=== PATIENT | male | born 2000 | race Caucasian/White ===

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

== ENCOUNTER 2019-07-28 23:07 | Emergency (ER) | payer SELFPAY ==
[2019-07-28] MEDS ORDERED: Acetaminophen 500 MG Tab PO ONE (23:35)
--- NOTE | 2019-07-28 23:47 | EDM.PDOC ---
ED HPI GENERAL MEDICAL PROBLEM - General Chief Complaint: Skin Complaint Stated Complaint: left ankle injury Time Seen by Provider: 07/28/19 23:17 Source of Information: Reports: Patient History Limitations: Reports: No Limitations - History of Present Illness INITIAL COMMENTS - FREE TEXT/NARRATIVE: This patient is a 19-year-old male with no pertinent past medical history presenting with pain and swelling to the left lower extremity. He reports noticing a blister over the left Achilles tendon 2 days ago. Over the past 24 hours, he has noted worsening swelling and pain over the same area. He is concerned that he may have an infection. He denies any fever, chills, nausea or vomiting. No history of IV drug use. No self treatment prior to arrival, no other complaints. L foot Pain Score (Numeric/FACES): 10 - Related Data Allergies Allergy/AdvReac Type Severity Reaction Status Date / Time venom-honey bee Allergy Swelling Verified 07/28/19 23:21 [bee venom (honey bee)] Home Meds: Home Meds cephALEXin [Keflex] 500 mg PO QID 7 Days #28 capsule 07/28/19 [Rx] Past Medical History - Past Health History Medical/Surgical History: Denies Medical/Surgical History HEENT History: Reports: None, Other (See Below) Other HEENT History: wears glasses Cardiovascular History: Reports: None Respiratory History: Reports: None Gastrointestinal History: Reports: None Genitourinary History: Reports: None Musculoskeletal History: Reports: None Neurological History: Reports: None Psychiatric History: Reports: None Endocrine/Metabolic History: Reports: None Hematologic History: Reports: None Immunologic History: Reports: None Oncologic (Cancer) History: Reports: None Dermatologic History: Reports: None - Infectious Disease History Infectious Disease History: Reports: None - Past Surgical History Head Surgeries/Procedures: Reports: None Cardiovascular Surgical History: Reports: None Respiratory Surgical History: Reports: None GI Surgical History: Reports: None Male Surgical History: Reports: None Endocrine Surgical History: Reports: None Neurological Surgical History: Reports: None Musculoskeletal Surgical History: Reports: None Oncologic Surgical History: Reports: None Dermatological Surgical History: Reports: None Social & Family History - Family History Family Medical History: Noncontributory - Tobacco Use Smoking Status *Q: Never Smoker - Caffeine Use Caffeine Use: Reports: None - Recreational Drug Use Recreational Drug Use: No ED ROS GENERAL - Review of Systems Review Of Systems: See Below Constitutional: Denies: Fever, Chills Respiratory: Denies: Shortness of Breath Cardiovascular: Denies: Chest Pain GI/Abdominal: Denies: Nausea, Vomiting Musculoskeletal: Reports: Leg Pain Skin: Reports: Wound ED EXAM, SKIN/RASH Exam: See Below Text/Narrative:: Vital signs reviewed. Nursing notes reviewed. Constitutional: Awake, alert, non-distressed. Head: Normocephalic, atraumatic. Pulmonary: normal work of breathing, no accessory muscle use. Abdomen/GI: nondistended Musculoskeletal: No deformities. Integumentary: Appropriate color for ethnicity, warm, dry, no pallor or jaundice , no rash. Small blister to the left Achilles tendon with associated erythema and tenderness. No obvious fluctuance or induration. Neurologic: Alert, answering questions appropriately, normal speech, no facial droop, moving all extremities well. Psychiatric: Appropriate mood and affect, normal thought process. ED SKIN PROCEDURES - Additional/Other Procedure(s) Other (Free Text) Procedure(s): Study: limited [id number] soft tissue ultrasound Recreational Programs Director: Ang Avendano DO Indication: pain, swelling to left lower extremity Windows: longitudinal, transverse Findings: soft tissue cobblestoning Impression: Findings consistent with cellulitis Course - Vital Signs Text/Narrative:: 19-year-old male presenting with left lower extremity pain and swelling. Patient mildly tachycardic on arrival but [hemodynamically stable, afebrile], well-appearing, looks nontoxic. Differential diagnosis includes but is not limited to: Abscess versus cellulitis Mildly tachycardic (HR 98-103 bpm), but no systemic signs of illness. Point-of- care ultrasound did not demonstrate a drainable abscess, appearance more consistent with cellulitis. Stable to discharge home. One-week course of Keflex. [id number] Tylenol Motrin as needed. Plan: Patient is stable to discharge home with outpatient primary care follow- up. Strict emergency department return precautions were provided, patient indicated understanding. All questions were answered prior to departure. Discharged in good condition. Last Recorded V/S: Last Vital Signs Temp 36.5 C 07/28/19 23:17 Pulse 103 H 07/28/19 23:17 Resp 16 07/28/19 23:17 BP 141/88 H 07/28/19 23:17 Pulse Ox 96 07/28/19 23:17 - Orders/Labs/Meds Meds: Medications Discontinued Medications Generic Name Dose Route Start Last Admin Trade Name Bell PRN Reason Stop Dose Admin Acetaminophen 1,000 mg 07/28/19 23:35 07/28/19 23:42 Tylenol Extra Strength PO 07/28/19 23:36 1,000 mg ONETIME ONE Administration Departure - Departure Time of Disposition: 23:52 Disposition: Home, Self-Care 01 Condition: Good Clinical Impression: Cellulitis Qualifiers: Site of cellulitis: extremity Site of cellulitis of extremity: lower extremity Laterality: left Qualified Code(s): L03.116 - Cellulitis of left lower limb - Discharge Information *PRESCRIPTION DRUG MONITORING PROGRAM REVIEWED*: Not Applicable *COPY OF PRESCRIPTION DRUG MONITORING REPORT IN PATIENT DENIS: Not Applicable Prescriptions: cephALEXin [Keflex] 500 mg PO QID 7 Days #28 capsule Instructions: Cellulitis, Adult Referrals: Maxim Groves MD [Primary Care Provider] - 1 Week (As needed for follow-up of infection) Forms: ED Department Discharge Additional Instructions: Thank you for choosing the [facility] emergency department in [place] for your medical needs today. It was a pleasure caring for you. You were seen in the emergency department for a skin infection. You have been prescribed antibiotics, take the whole bottle even if you are feeling better. I recommend [id number] Tylenol and Motrin for pain. You can follow-up with your primary doctor the next few days if you do not think the wound is improving adequately. Please return the emergency department immediately if your symptoms worsen or if you feel worse. The following information is given to patients seen in the emergency department who are being discharged. This information is to outline your options for follow -up care. We provide all patients seen in our emergency department with a follow -up referral. The need for follow-up, as well as the timing and circumstances, are variable depending upon the specifics of your emergency department visit. If you don't have a primary care physician on staff, we will provide you with a referral. We always advise you to contact your personal physician following an emergency department visit to inform them of the circumstance of the visit and for follow-up with them and/or the need for any referrals to a consulting specialist. The emergency department will also refer you to a specialist when appropriate. This referral assures that you have the opportunity for follow-up care with a specialist. All of these measure are taken in an effort to provide you with optimal care, which includes your follow-up. Under all circumstances we always encourage you to contact your private physician who remains a resource for coordinating your care. When calling for follow-up care, please make the office aware that this follow-up is from your recent emergency room visit. If for any reason you are refused follow-up, please contact the [facility] Emergency Department at and asked to speak to the emergency department charge nurse. If you do not have a primary care physician that is caring for you, you can contact these clinics below to set up an appointment to establish care: [facility] [address] [place] [id number] [facility] [address] [place] [id number] Sepsis Event Note - Evaluation Sepsis Screening Result: No Definite Risk - Focused Exam Vital Signs: Vital Signs Temp Pulse Resp BP Pulse Ox 07/28/19 23:17 36.5 C 103 H 16 141/88 H 96 Date Exam was Performed: 07/28/19 Time Exam was Performed: 23:53
[2019-07-29 00:37] VITALS: BP 121/74; PULSE 97
== END 2019-07-29 | disposition home or self-care (01) ==
LOC: MW.ED 23:07
DX: L03.116 Cellulitis of left lower limb (principal); Z91.030 Bee allergy status
CPT/HCPCS: 99283; A9270; 99282

== ENCOUNTER 2019-10-02 23:37 | Emergency (ER) | payer SELFPAY ==
[2019-10-03 00:01] VITALS: BP 123/81; PULSE 99
--- NOTE | 2019-10-03 00:03 | EDM.PDOC ---
ED HPI GENERAL MEDICAL PROBLEM - General Chief Complaint: Laceration Stated Complaint: LACERATION LT POINTER FINGER Time Seen by Provider: 10/02/19 23:37 Source of Information: Reports: Patient History Limitations: Reports: No Limitations - History of Present Illness INITIAL COMMENTS - FREE TEXT/NARRATIVE: 19M UTD tetanus presents for lac to L index finger. Slipped with box knife cutting it L index finger Pain Score (Numeric/FACES): 8 - Related Data Allergies Allergy/AdvReac Type Severity Reaction Status Date / Time venom-honey bee Allergy Swelling Verified 07/28/19 23:21 [bee venom (honey bee)] Home Meds: Home Meds cephALEXin [Keflex] 500 mg PO QID 7 Days #28 capsule 07/28/19 [Rx] Past Medical History - Past Health History Medical/Surgical History: Denies Medical/Surgical History HEENT History: Reports: None, Other (See Below) Other HEENT History: wears glasses Cardiovascular History: Reports: None Respiratory History: Reports: None Gastrointestinal History: Reports: None Genitourinary History: Reports: None Musculoskeletal History: Reports: None Neurological History: Reports: None Psychiatric History: Reports: None Endocrine/Metabolic History: Reports: None Hematologic History: Reports: None Immunologic History: Reports: None Oncologic (Cancer) History: Reports: None Dermatologic History: Reports: None - Infectious Disease History Infectious Disease History: Reports: None - Past Surgical History Head Surgeries/Procedures: Reports: None Cardiovascular Surgical History: Reports: None Respiratory Surgical History: Reports: None GI Surgical History: Reports: None Male Surgical History: Reports: None Endocrine Surgical History: Reports: None Neurological Surgical History: Reports: None Musculoskeletal Surgical History: Reports: None Oncologic Surgical History: Reports: None Dermatological Surgical History: Reports: None Social & Family History - Family History Family Medical History: Noncontributory - Caffeine Use Caffeine Use: Reports: None ED ROS GENERAL - Review of Systems Review Of Systems: Comprehensive ROS is negative, except as noted in HPI. ED EXAM, SKIN/RASH Exam: See Below Exam Limited By: No Limitations General Appearance: Alert, WD/WN, No Apparent Distress Head: Atraumatic, Normocephalic Respiratory/Chest: No Respiratory Distress Cardiovascular: Normal Peripheral Pulses Extremities: Normal Inspection Neurological: Alert, Oriented Psychiatric: Normal Affect, Normal Mood Skin: Warm, Dry, Other (1-cm laceration to DIP L index finger without nailbed involvement ) Lymphatic: No Adenopathy ED SKIN PROCEDURES - Laceration/Wound Repair Left Digit - 2nd (Index) Appearance: Subcutaneous Distal NVT: Neuro & Vascular Intact Local Anesthesia - Lidocaine (Xylocaine): 1% Plain Local Anesthetic Volume: 5cc Skin Prep: Chlorhexidine (Hibiciens), Isopropyl Alcohol (Alcohol) Saline Irrigation (cc's): 100 Closed with: Sutures Lac/Wound length In cm: 1 Suture Size: 6-0 # of Sutures: 3 Suture Type: Prolene, Nylon, Interrupted, Simple Tetanus Status Addressed: Yes Complications: No Course - Vital Signs Last Recorded V/S: Last Vital Signs Temp 96.8 F L 10/02/19 23:58 Pulse 99 10/02/19 23:58 Resp 18 10/02/19 23:58 BP 123/81 10/02/19 23:58 Pulse Ox 99 10/02/19 23:58 - Orders/Labs/Meds Meds: Medications Discontinued Medications Generic Name Dose Route Start Last Admin Trade Name Bell PRN Reason Stop Dose Admin Cephalexin 500 mg 10/03/19 00:32 Keflex PO 10/03/19 00:33 ONETIME ONE Lidocaine HCl 10 ml 10/03/19 00:05 10/03/19 00:19 Xylocaine 1% INJECT 10/03/19 00:06 10 ml ONETIME ONE Administration Departure - Departure Time of Disposition: 00:51 Disposition: Home, Self-Care 01 Condition: Good Clinical Impression: Laceration of finger Qualifiers: Encounter type: initial encounter Finger: index finger Damage to nail status: without damage Foreign body presence: without foreign body Laterality: left Qualified Code(s): S61.211A - Laceration without foreign body of left index finger without damage to nail, initial encounter - Discharge Information *PRESCRIPTION DRUG MONITORING PROGRAM REVIEWED*: No *COPY OF PRESCRIPTION DRUG MONITORING REPORT IN PATIENT DENIS: No Instructions: Laceration Care, Adult Referrals: PCP,None [Primary Care Provider] - Forms: ED Department Discharge Additional Instructions: The following information is given to patients seen in the emergency department who are being discharged to home. This information is to outline your options for follow-up care. We provide all patients seen in our emergency department with a follow-up referral. The need for follow-up, as well as the timing and circumstances, are variable depending upon the specifics of your emergency department visit. If you don't have a primary care physician on staff, we will provide you with a referral. We always advise you to contact your personal physician following an emergency department visit to inform them of the circumstance of the visit and for follow-up with them and/or the need for any referrals to a consulting specialist. The emergency department will also refer you to a specialist when appropriate. This referral assures that you have the opportunity for follow-up care with a specialist. All of these measure are taken in an effort to provide you with optimal care, which includes your follow-up. Under all circumstances we always encourage you to contact your private physician who remains a resource for coordinating your care. When calling for follow-up care, please make the office aware that this follow-up is from your recent emergency room visit. If for any reason you are refused follow-up, please contact the [facility] Emergency Department at and asked to speak to the emergency department charge nurse. Sepsis Event Note (ED) - Evaluation Sepsis Screening Result: No Definite Risk - Focused Exam Vital Signs: Vital Signs Temp Pulse Resp BP Pulse Ox 10/02/19 23:58 96.8 F L 99 18 123/81 99
[2019-10-03] MEDS ORDERED: Lidocaine 1% 10 ML MDV INJECT ONE (00:05)
[2019-10-03] MEDS ORDERED: Cephalexin 500 MG Cap PO ONE (00:32)
--- NOTE | 2019-10-03 01:01 | CR ---
INDICATION: Laceration to end of index finger TECHNIQUE: Finger radiograph 3 views left 2nd COMPARISON: None FINDINGS: Bone: No acute fractures or aggressive bone lesions are identified. Joint: The metacarpophalangeal and interphalangeal joints are normal in appearance. Soft tissue: Unremarkable. No radiopaque foreign bodies are seen. IMPRESSION: 1. No acute osseous injuries or abnormalities are noted. Dictated by: Francisco Javier Remy MD @ 10/03/2019 01:00:06 (Electronically Signed)
== END 2019-10-03 01:15 | disposition home or self-care (01) ==
LOC: MW.ED 23:37
DX: S61.211A Laceration without foreign body of left index finger without damage to nail, initial encounter (principal); Z91.030 Bee allergy status; W26.0XXA Contact with knife, initial encounter
CPT/HCPCS: 12041; 73140; 99283; J2001

== ENCOUNTER 2020-10-22 01:48 | Emergency (ER) | payer SELFPAY ==
[2020-10-22] MEDS: Ondansetron 4 MG Tab.DIS PO ONE (02:10)
--- NOTE | 2020-10-22 02:17 | EDM.PDOC ---
ED HPI GENERAL MEDICAL PROBLEM - General Chief Complaint: Gastrointestinal Problem Stated Complaint: BLOOD DRAW, MEDICAL CLEARANCE Time Seen by Provider: 10/22/20 01:49 - History of Present Illness INITIAL COMMENTS - FREE TEXT/NARRATIVE: History of present illness: The patient is nauseated. He thinks is because he drank too much. It is happened to him before. It happens occasionally. He does not think he has a drinking problem. Review of systems: As per history of present illness and below otherwise all systems reviewed and negative. Past medical history: As per history of present illness and as reviewed below otherwise noncontributory. Surgical history: As per history of present illness and as reviewed below otherwise noncontributory. Social history: No reported history of drug or alcohol abuse. Family history: As per history of present illness and as reviewed below otherwise noncontributory. Physical exam: Constitutional - well developed, well-nourished and in no acute distress HEENT - normocephalic, no evidence of trauma - external nose and mouth normal - no mass in neck and no JVD - mucosae moist EYES - full EOM, PERRL, no icterus - no evidence of inflammation, injection, or drainage Respiratory - no respiratory distress, equal bilateral expansion, lungs clear to auscultation and no abnormal lung sounds Cardiovascular - Regular Rhythm with S1 and S2 appreciated and no murmur, gallop or rub. GI - abdomen soft without distension or organomegaly - normal bowel sounds - no guard or rebound Musculoskeletal no gross deformity of long bones or joints - no tenderness, swelling or edema Neurologic - Alert and oriented times four - CN II-XII grossly intact - motor sensory and coordination symmetrically normal Psychiatric - appropriate mood and affect with normal thought content Hematologic - No petechiae or purpura - mucosa appropriate color and sclera not pale - normal nail bed color and refill Integument - no rash or evidence of trauma - normal turgor Diagnostics: [] Therapeutics: [] Impression: [] Plan: [] Definitive disposition and diagnosis as appropriate pending reevaluation and review of above. - Related Data Allergies Allergy/AdvReac Type Severity Reaction Status Date / Time venom-honey bee Allergy Swelling Verified 10/22/20 02:03 [bee venom (honey bee)] Home Meds: Home Meds . [No Known Home Meds] 10/22/20 [History] Past Medical History - Past Health History Medical/Surgical History: Denies Medical/Surgical History HEENT History: Reports: None, Other (See Below) Other HEENT History: wears glasses Cardiovascular History: Reports: None Respiratory History: Reports: None Gastrointestinal History: Reports: None Genitourinary History: Reports: None Musculoskeletal History: Reports: None Neurological History: Reports: None Psychiatric History: Reports: None Endocrine/Metabolic History: Reports: None Hematologic History: Reports: None Immunologic History: Reports: None Oncologic (Cancer) History: Reports: None Dermatologic History: Reports: None - Infectious Disease History Infectious Disease History: Reports: None - Past Surgical History Head Surgeries/Procedures: Reports: None HEENT Surgical History: Reports: Adenoidectomy, Tonsillectomy Other HEENT Surgeries/Procedures: tooth extraction Cardiovascular Surgical History: Reports: None Respiratory Surgical History: Reports: None GI Surgical History: Reports: None Male Surgical History: Reports: None Endocrine Surgical History: Reports: None Neurological Surgical History: Reports: None Musculoskeletal Surgical History: Reports: None Other Musculoskeletal Surgeries/Procedures:: hand sx Oncologic Surgical History: Reports: None Dermatological Surgical History: Reports: None Social & Family History - Family History Family Medical History: No Pertinent Family History - Caffeine Use Caffeine Use: Reports: None - Recreational Drug Use Recreational Drug Use: No ED ROS GENERAL - Review of Systems Review Of Systems: Comprehensive ROS is negative, except as noted in HPI. ED EXAM, GENERAL - Physical Exam Exam: See Below Free Text/Narrative:: My physical exam is in the HPI Course - Vital Signs Last Recorded V/S: Last Vital Signs Temp 35.6 C L 10/22/20 01:59 Pulse 91 10/22/20 01:59 Resp 16 10/22/20 01:59 BP 130/83 10/22/20 01:59 Pulse Ox 96 10/22/20 01:59 - Orders/Labs/Meds Meds: Medications Discontinued Medications Generic Name Dose Route Start Last Admin Trade Name Bell PRN Reason Stop Dose Admin Ondansetron HCl 4 mg 10/22/20 02:07 10/22/20 02:10 Ondansetron 4 Mg Tab.Dis PO 10/22/20 02:08 4 mg ONETIME ONE Administration Departure - Departure Time of Disposition: 02:35 Disposition: DC/Tfer to Court of Law En 21 Condition: Good Clinical Impression: Gastritis - Discharge Information Instructions: Gastritis, Adult, [id number] Referrals: Maxim Groves MD [Primary Care Provider] - Forms: ED Department Discharge Additional Instructions: Take antacids as needed. If this is a recurring problem take [id number] medicine such as famotidine or omeprazole. [facility] [address] [place] [id number] [facility] [address] [place] [id number] The following information is given to patients seen in the emergency department who are being discharged to home. This information is to outline your options for follow-up care. We provide all patients seen in our emergency department with a follow-up referral. The need for follow-up, as well as the timing and circumstances, are variable depending upon the specifics of your emergency department visit. If you don't have a primary care physician on staff, we will provide you with a referral. We always advise you to contact your personal physician following an emergency department visit to inform them of the circumstance of the visit and for follow-up with them and/or the need for any referrals to a consulting specialist. The emergency department will also refer you to a specialist when appropriate. This referral assures that you have the opportunity for follow-up care with a specialist. All of these measure are taken in an effort to provide you with optimal care, which includes your follow-up. Under all circumstances we always encourage you to contact your private physician who remains a resource for coordinating your care. When calling for follow-up care, please make the office aware that this follow-up is from your recent emergency room visit. If for any reason you are refused follow-up, please contact the [facility] Emergency Department at and asked to speak to the emergency department charge nurse. Sepsis Event Note (ED) - Focused Exam Vital Signs: Vital Signs Temp Pulse Resp BP Pulse Ox 10/22/20 01:59 35.6 C L 91 16 130/83 96
[2020-10-22 02:39] VITALS: BP 129/73; PULSE 88
== END 2020-10-22 02:39 ==
LOC: MW.ED 01:48
DX: K29.70 Gastritis, unspecified, without bleeding (principal); Z91.030 Bee allergy status
CPT/HCPCS: 99283; A9270

== ENCOUNTER 2021-02-13 11:43 | Emergency (ER) | payer OTHER ==
--- NOTE | 2021-02-13 11:56 | EDM.PDOC ---
ED HPI GENERAL MEDICAL PROBLEM - General Chief Complaint: Trauma Stated Complaint: TRAUMA FROM TIRE RIM Time Seen by Provider: 02/13/21 11:45 Source of Information: Reports: Patient, EMS History Limitations: Reports: No Limitations - History of Present Illness INITIAL COMMENTS - FREE TEXT/NARRATIVE: 20-year-old male with no past medical history presents for blunt chest trauma. Patient was working on a tire when a rim popped off of the tire at roughly 50 pounds of pressure hitting into his chest. This caused him to be knocked back into fall on his buttocks. He felt the wind knocked out of him. He did not hit his head or lose consciousness. He is endorsing pain in his lower chest wall which is worse with breathing on. He did receive 1 mg of Dilaudid and 4 mg of Zofran by EMS which he states helped his pain from 10 out of 10 to 5 out of 10 in severity. He also notes pain in his middle and lower back. chest/abdomen Pain Score (Numeric/FACES): 5 - Related Data Allergies Allergy/AdvReac Type Severity Reaction Status Date / Time venom-honey bee Allergy Swelling Verified 02/13/21 11:51 [bee venom (honey bee)] Home Meds: Home Meds Acetaminophen/oxyCODONE [Percocet 325-5 MG] 1 each PO Q6HR PRN #12 tab 02/13/21 [Rx] Ibuprofen [Motrin] 600 mg PO Q6H PRN #30 tab 02/13/21 [Rx] Past Medical History - Past Health History Medical/Surgical History: Denies Medical/Surgical History HEENT History: Reports: None, Other (See Below) Other HEENT History: wears glasses Cardiovascular History: Reports: None Respiratory History: Reports: None Gastrointestinal History: Reports: None Genitourinary History: Reports: None Musculoskeletal History: Reports: None Neurological History: Reports: None Psychiatric History: Reports: None Endocrine/Metabolic History: Reports: None Hematologic History: Reports: None Immunologic History: Reports: None Oncologic (Cancer) History: Reports: None Dermatologic History: Reports: None - Infectious Disease History Infectious Disease History: Reports: None - Past Surgical History Head Surgeries/Procedures: Reports: None HEENT Surgical History: Reports: Adenoidectomy, Tonsillectomy Other HEENT Surgeries/Procedures: tooth extraction Cardiovascular Surgical History: Reports: None Respiratory Surgical History: Reports: None GI Surgical History: Reports: None Male Surgical History: Reports: None Endocrine Surgical History: Reports: None Neurological Surgical History: Reports: None Musculoskeletal Surgical History: Reports: None Other Musculoskeletal Surgeries/Procedures:: hand sx Oncologic Surgical History: Reports: None Dermatological Surgical History: Reports: None Social & Family History - Family History Family Medical History: No Pertinent Family History - Caffeine Use Caffeine Use: Reports: None Review of Systems - Review of Systems Review Of Systems: Comprehensive ROS is negative, except as noted in HPI. ED EXAM, GENERAL - Physical Exam Exam: See Below Exam Limited By: No Limitations General Appearance: Alert, WD/WN, No Apparent Distress Ears: Hearing Grossly Normal Throat/Mouth: Normal Voice, No Airway Compromise Head: Atraumatic, Normocephalic Neck: Normal Inspection, Supple, Non-Tender, Full Range of Motion Respiratory/Chest: No Respiratory Distress, Lungs Clear, Normal Breath Sounds, No Accessory Muscle Use, Other (Tenderness to palpation of bilateral lower chest wall) Cardiovascular: Normal Peripheral Pulses, Regular Rate, Rhythm GI/Abdominal: Soft, Other (Tenderness to palpation of the upper abdomen bilaterally without guarding or rebound) Back Exam: Normal Inspection, Other (tenderness to palpation of diffuse lower thoracic and lumbar spine) Extremities: Normal Inspection Neurological: Alert, Normal Cognition Psychiatric: Normal Affect, Normal Mood Skin Exam: Warm, Dry, Intact, Normal Color #1 Interpretation EKG Date: 02/13/21 Time: 12:27 Rhythm: NSR Rate (Beats/Min): 67 [place]: Normal P-Wave: Present QRS: Normal ST-T: Normal QT: Normal MI/PQ Interval: 176 Comparison: NA - No Prior EKG EKG Interpretation Comments: normal EKG Course - Vital Signs Last Recorded V/S: Last Vital Signs Temp Pulse 76 02/13/21 11:43 Resp 18 02/13/21 11:43 BP 133/83 02/13/21 11:43 Pulse Ox 97 02/13/21 11:43 - Orders/Labs/Meds Orders: Active Orders 24 hr Category Date Time Status Saline Lock Insert [OM.PC] Stat Oth 02/13/21 11:45 Ordered Labs: Laboratory Tests 02/13/21 02/13/21 Range/Units 11:45 11:45 WBC 5.99 (4.0-11.0) K/uL RBC 5.20 (4.50-5.90) M/uL Hgb 16.2 (13.0-17.0) g/dL Hct 46.1 (38.0-50.0) % MCV 88.7 (80.0-98.0) fL MCH 31.2 (27.0-32.0) pg MCHC 35.1 (31.0-37.0) g/dL RDW Std Deviation 41.2 (28.0-62.0) fl RDW Coeff of Eli 13 (11.0-15.0) % Plt Count 194 (150-400) K/uL MPV 9.60 (7.40-12.00) fL Neut % (Auto) 34.8 L (48.0-80.0) % Lymph % (Auto) 52.1 H (16.0-40.0) % [place] % (Auto) 11.4 (0.0-15.0) % Eos % (Auto) 1.0 (0.0-7.0) % Baso % (Auto) 0.7 (0.0-1.5) % Neut # (Auto) 2.1 (1.4-5.7) K/uL Lymph # (Auto) 3.1 H (0.6-2.4) K/uL [place] # (Auto) 0.7 (0.0-0.8) K/uL Eos # (Auto) 0.1 (0.0-0.7) K/uL Baso # (Auto) 0.0 (0.0-0.1) K/uL Nucleated RBC % 0.0 /100WBC Nucleated RBCs # 0 K/uL Sodium 141 (136-148) mmol/L Potassium 4.1 (3.5-5.1) mmol/L Chloride 104 (98-107) mmol/L Carbon Dioxide 27.4 (21.0-32.0) mmol/L BUN 21 H (7.0-18.0) mg/dL Creatinine 1.1 (0.8-1.3) mg/dL Est Cr Clr Drug Dosing 113.14 mL/min Estimated GFR (MDRD) > 60.0 ml/min Glucose 88 (74-106) mg/dL Calcium 9.6 (8.5-10.1) mg/dL Total Bilirubin 0.3 (0.2-1.0) mg/dL AST 113 H (15-37) IU/L ALT 121 H (14-63) IU/L Alkaline Phosphatase 95 (46-116) U/L Troponin I < 0.050 (0.000-0.056) ng/mL Total Protein 7.4 (6.4-8.2) g/dL Albumin 4.1 (3.4-5.0) g/dL Globulin 3.3 (2.6-4.0) g/dL Albumin/Globulin Ratio 1.2 (0.9-1.6) Meds: Medications Discontinued Medications Generic Name Dose Route Start Last Admin Trade Name Freq PRN Reason Stop Dose Admin Iopamidol 100 ml 02/13/21 12:05 02/13/21 12:05 Iopamidol 755 Mg/Ml 500 Ml Multipack Bottle IVPUSH 02/13/21 12:06 100 ml ONETIME STA Administration - Re-Assessments/Exams Free Text/Narrative Re-Assessment/Exam: 02/13/21 11:56 Wet-read CXR no large pneumothorax. Will follow-up additional labs, imaging, and EKG. 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 Will give additional analgesia as needed. 02/13/21 13:03 No osseous injuries on imaging. Labs are unremarkable. Had long discussion with patient regarding return precautions. Will discharge with short course of analgesia. Departure - Departure Time of Disposition: 13:03 Disposition: Home, Self-Care 01 Condition: Good Clinical Impression: Blunt injury of chest Qualifiers: Encounter type: initial encounter Qualified Code(s): S29.8XXA - Other specified injuries of thorax, initial encounter - Discharge Information Instructions: Blunt Chest Trauma Referrals: PCP,None [Ordering Only Provider] - Forms: ED Department Discharge Additional Instructions: Your labs and CT imaging were unremarkable. I did prescribe you 2 different pain medications sent to [facility] which is in the back-right corner of the [place]. The following information is given to patients seen in the emergency department who are being discharged to home. This information is to outline your options for follow-up care. We provide all patients seen in our emergency department with a follow-up referral. The need for follow-up, as well as the timing and circumstances, are variable depending upon the specifics of your emergency department visit. If you don't have a primary care physician on staff, we will provide you with a referral. We always advise you to contact your personal physician following an emergency department visit to inform them of the circumstance of the visit and for follow-up with them and/or the need for any referrals to a consulting specialist. The emergency department will also refer you to a specialist when appropriate. This referral assures that you have the opportunity for follow-up care with a specialist. All of these measure are taken in an effort to provide you with optimal care, which includes your follow-up. Under all circumstances we always encourage you to contact your private physician who remains a resource for coordinating your care. When calling for follow-up care, please make the office aware that this follow-up is from your recent emergency room visit. If for any reason you are refused follow-up, please contact the [facility] Emergency Department at and asked to speak to the emergency department charge nurse. Please follow up with your primary care physician. If you do not have a primary care physician, see below: [facility] [address] [place] [id number] My [facility] [address] [place] [id number] [facility] [address] [place] [id number] Sepsis Event Note (ED) - Focused Exam Vital Signs: Vital Signs Pulse Resp BP Pulse Ox 02/13/21 11:43 76 18 133/83 97 - My Orders Last 24 Hours: My Active Orders 02/13/21 11:45 Saline Lock Insert [OM.PC] Stat - Assessment/Plan Last 24 Hours: My Active Orders 02/13/21 11:45 Saline Lock Insert [OM.PC] Stat
--- NOTE | 2021-02-13 12:00 | CR ---
INDICATION: Trauma COMPARISON: None TECHNIQUE: Single view AP portable chest radiograph FINDINGS: TUBES AND LINES: None. HEART AND MEDIASTINUM: The heart size is normal. The mediastinal contour appears normal for patient age. LUNGS AND PLEURAL SPACES: The lungs appear normal.The pleural spaces are unremarkable. OSSEOUS STRUCTURES: Age-appropriate appearance. No acute focal finding. IMPRESSION: Normal single-view portable AP supine chest radiograph. No visible post traumatic finding Dictated by Hola Conde MD @ 02/13/2021 11:58:35 AM (Electronically Signed)
[2021-02-13] MEDS ORDERED: Iopamidol 755 MG/ML 500 ML Multipack Bottle IVPUSH STA (12:05)
[2021-02-13 12:44] LABS: BLOOD UREA NITROGEN,BUN 21 mg/dL (7.0-18.0); CARBON DIOXIDE,CO2 27.4 mmol/L (21.0-32.0); CHLORIDE,CL 104 mmol/L (98-107); GLUCOSE RANDOM 88 mg/dL (74-106); POTASSIUM,K 4.1 mmol/L (3.5-5.1); SODIUM,NA 141 mmol/L (136-148)
--- NOTE | 2021-02-13 12:46 | CT ---
indication: Blunt force trauma to the chest Technique: Volumetric multidetector CT images of the chest were obtained after the administration of IV contrast. 100 cc Isovue 370 low osmolar intravenous contrast Comparison: None available. Findings: The thoracic inlet and thyroid gland are unremarkable. The thoracic aorta is nonaneurysmal. There is no central filling defect to suggest pulmonary embolism. There is no mediastinal, hilar or axillary adenopathy. The trachea and bronchi are well aerated without significant bronchiectasis. There is dependent basilar atelectasis and mild interstitial prominence without evidence of dense consolidation, effusion or pneumothorax. The thoracic osseous structures are grossly intact. The visualized stomach demonstrates moderate mucosal hyperemia and thickening of the gastric antrum which can be seen in the setting of gastritis changes. The thoracic vertebral body heights are grossly maintained with minimal endplate Schmorl`s defects consistent with Scheuermann`s disease. Impression: Dependent basilar atelectasis and mild interstitial prominence without evidence of acute cardiopulmonary abnormality. No evidence of displaced thoracic bony injury. Early degenerative changes of the thoracic spine commensurate with Scheuermann`s disease. Please note that all CT scans at this facility use dose modulation, iterative reconstruction, and/or weight-based dosing when appropriate to reduce radiation dose to as low as reasonably achievable. Dictated by Yusuf Wilson MD @ 02/13/2021 12:45:30 PM (Electronically Signed)
--- NOTE | 2021-02-13 12:50 | CT ---
Indication: Trauma, blunt force injury to the chest Technique: Volumetric multidetector CT images of the abdomen and pelvis were obtained after the administration of intravenous contrast. 100 cc Isovue 370 low osmolar intravenous contrast Comparison: None available. Findings: The lung bases demonstrate basilar atelectasis. The liver is normal in attenuation without intrahepatic biliary ductal dilatation. The portal vein is patent. The gallbladder is unremarkable without evidence of radiopaque calculus. There is no significant common biliary ductal dilatation or abrupt cut off. There is a mildly heterogeneous attenuation pattern within the spleen likely representing phase contrast timing. No evidence of splenic capsular injury is appreciated. There is no splenomegaly. There is moderate mucosal hyperemia within the stomach and thickening of the gastric antrum which can be seen in the setting of chronic gastritis changes. The pancreas is normal in enhancement without significant atrophy. The adrenal glands are unremarkable. The kidneys demonstrate preserved corticomedullary differentiation without evidence of obstructive uropathy. There is a minimal amount of stool seen throughout the colon with trace early colonic diverticulosis. The appendix is unremarkable. There are shoddy central mesenteric and epigastric lymph nodes which may represent sequela of prior mesenteric adenitis. The aorta is nonaneurysmal. There is no significant atherosclerotic disease appreciated. The solid pelvic viscera are grossly unremarkable. There is no free fluid or free air. The anterior abdominal wall is intact without significant hernias. The lumbar vertebral body heights are grossly maintained with minimal endplate Schmorl`s defects. There is no significant spondylolisthesis or displaced fracture. Impression: Moderate gastric mucosal thickening as well as thickening of the gastric antrum which can be seen in the setting of chronic gastritis changes. Nonspecific prominence of central mesenteric and epigastric lymph nodes likely representing sequela of prior mesenteric adenitis. No acute traumatic changes of the abdomen or pelvis. Please note that all CT scans at this facility use dose modulation, iterative reconstruction, and/or weight-based dosing when appropriate to reduce radiation dose to as low as reasonably achievable. Dictated by Yusuf Wilson MD @ 02/13/2021 12:49:46 PM (Electronically Signed)
--- NOTE | 2021-02-13 12:54 | CT ---
Indication: Blunt force trauma Technique: Volumetric multidetector CT images of the lumbar spine were obtained without the administration of IV contrast. Comparison: None available. Findings: The lumbar vertebral body heights are grossly maintained with minimal endplate Schmorl`s defects. There is mild straightening of the normal lordosis without significant spondylolisthesis. There is minimal early degenerative disc height loss and small disc protrusions without evidence significant degenerative disc disease. There is a small normal variant midline segmentation anomaly of the S1 spinous process. There is no significant spinal canal stenosis or neural foraminal narrowing. There is no displaced fracture or dislocation. The paraspinous soft tissues are grossly within normal limits. Impression: Mild early degenerative disc disease changes and endplate Schmorl`s defects without evidence of acute osseous abnormality. Please note that all CT scans at this facility use dose modulation, iterative reconstruction, and/or weight-based dosing when appropriate to reduce radiation dose to as low as reasonably achievable. Dictated by Yusuf Wilson MD @ 02/13/2021 12:53:45 PM (Electronically Signed)
--- NOTE | 2021-02-13 13:03 | CT ---
Indication: Blunt force trauma Technique: Volumetric multidetector CT images of the thoracic spine were obtained without the administration of IV contrast. Comparison: None available. Findings: The thoracic vertebral body heights are grossly maintained with endplate Schmorl`s defects seen throughout commensurate with likely Scheuermann`s disease. There is preserved thoracic kyphosis without significant spondylolisthesis. There is mild early degenerative disc height loss and marginal osteophyte formation. There is no significant spinal canal stenosis or neural foraminal narrowing. There is no displaced fracture or dislocation. The paraspinous soft tissues are grossly within normal limits. Impression: No evidence of acute osseous abnormality. Endplate Schmorl`s defects commensurate with likely Scheuermann`s disease and early degenerative changes. Please note that all CT scans at this facility use dose modulation, iterative reconstruction, and/or weight-based dosing when appropriate to reduce radiation dose to as low as reasonably achievable. Dictated by Yusuf Wilson MD @ 02/13/2021 1:01:02 PM (Electronically Signed)
[2021-02-13 13:28] VITALS: BP 123/85; PULSE 82
== END 2021-02-13 13:28 | disposition home or self-care (01) ==
LOC: MW.ED 11:43
DX: S29.8XXA Other specified injuries of thorax, initial encounter (principal); Z91.030 Bee allergy status; W22.8XXA Striking against or struck by other objects, initial encounter
CPT/HCPCS: 36415; 71045; 71260; 72128; 72131; 74177; 80053; 84484; 85025; 93005; 99285; Q9967

== ENCOUNTER 2021-09-09 08:30 | Emergency (ER) | payer OTHER ==
[2021-09-09] MEDS ORDERED: Acetaminophen 500 MG Tab PO ONE (08:39)
[2021-09-09] MEDS ORDERED: Diphtheria,Pertussis(Acell),Tetanus Vaccine 0.5 ML Syringe IM ONE (08:40)
[2021-09-09] MEDS ORDERED: Lidocaine 1% with EPINEPHrine 1:100,000 10 ML MDV INJECT ONE (08:49)
[2021-09-09 10:01] VITALS: BP 137/90; PULSE 70
== END 2021-09-09 10:02 | disposition home or self-care (01) ==
LOC: MW.ED 08:30
DX: S90.852A Superficial foreign body, left foot, initial encounter (principal); Z91.030 Bee allergy status; Z23 Encounter for immunization; W45.8XXA Other foreign body or object entering through skin, initial encounter
CPT/HCPCS: 28190; 73620; 90471; 90715; 99283; A9270

== ENCOUNTER 2022-08-29 20:50 | Emergency (ER) | payer OTHER ==
[2022-08-29] MEDS ORDERED: Ibuprofen 600 MG Tab PO ONE (21:01)
[2022-08-30 00:27] VITALS: BP 131/70; PULSE 81
== END 2022-08-29 22:28 | disposition home or self-care (01) ==
LOC: MW.ED 20:50
DX: S89.92XA Unspecified injury of left lower leg, initial encounter (principal); Z91.030 Bee allergy status; V86.55XA Driver of 3- or 4- wheeled all-terrain vehicle (ATV) injured in nontraffic accident, initial encounter; Y92.410 Unspecified street and highway as the place of occurrence of the external cause
CPT/HCPCS: 29515; 72170; 73562; 99283; A9270

== ENCOUNTER 2023-04-01 20:02 | Emergency (ER) | payer SELFPAY | END 2023-04-01 23:55 | disposition left against medical advice (07) | LOC: MW.ED 20:02 | DX: Z53.21 Procedure and treatment not carried out due to patient leaving prior to being seen by health care provider (principal) ==

== ENCOUNTER 2023-10-27 14:25 | Emergency (ER) | payer SELFPAY ==
[2023-10-27] MEDS: predniSONE 20 MG Tab PO ONE (14:59)
[2023-10-27] MEDS: diphenhydrAMINE 50 MG Cap PO ONE (15:01)
[2023-10-27] MEDS: Famotidine 20 MG Tab PO ONE (15:02)
[2023-10-27 15:27] VITALS: BP 124/73; PULSE 96
== END 2023-10-27 15:29 | disposition home or self-care (01) ==
LOC: MW.ED 14:25
DX: S40.861A Insect bite (nonvenomous) of right upper arm, initial encounter (principal); Z91.030 Bee allergy status; W57.XXXA Bitten or stung by nonvenomous insect and other nonvenomous arthropods, initial encounter
CPT/HCPCS: 99283; A9270

== ENCOUNTER 2024-04-09 05:27 | Emergency (ER) | payer SELFPAY ==
[2024-04-09] MEDS: Sodium Chloride 0.9% 1,000 ML IV ONE (05:45)
[2024-04-09] MEDS: cefTRIAXone 2 GM in Sodium Chloride 0.9% 50 ML IV ONE (05:57)
[2024-04-09 06:01] LABS: HEMATOCRIT 47.1 % (42.0-52.0); HEMOGLOBIN 16.5 g/dL (14.0-18.0); MEAN CORPUSCULAR HEMOGLOBIN 30.6 pg (28.0-32.0); MEAN CORPUSCULAR VOLUME 87.2 fL (83.0-99.0); MEAN PLATELET VOLUME 9.2 fL (9.4-12.4); PLATELET COUNT,PLT 255 K/uL (150-400); WHITE BLOOD CELL COUNT,WBC 13.65 K/uL (3.9-11.3)
[2024-04-09 06:31] LABS: A/G RATIO 1.2 (0.9-1.6); ALANINE AMINOTRANSFERASE,ALT 29 IU/L (14-63); ALBUMIN 4.3 g/dL (3.4-5.0); ALKALINE PHOSPHATASE 100 U/L (46-116); ASPARTATE AMNIOTRANSFERASE,AST 18 IU/L (15-37); BILIRUBIN TOTAL 0.7 mg/dL (0.2-1.0); BLOOD UREA NITROGEN,BUN 14 mg/dL (7.0-18.0); CALCIUM 9.5 mg/dL (8.5-10.1); CARBON DIOXIDE,CO2 26.1 mmol/L (21.0-32.0); CHLORIDE,CL 102 mmol/L (98-107); CREATININE 1.4 mg/dL (0.8-1.3); EST CRCL DRUG DOSING (CG) 80.66 mL/min; GLUCOSE RANDOM 102 mg/dL (74-106); PROTEIN TOTAL,TP 7.9 g/dL (6.4-8.2); SODIUM,NA 139 mmol/L (136-148)
[2024-04-09 06:38] LABS: ESTIMATED GFR 72 mL/min (>60); ETHANOL BLOOD MEDICAL < 3.0 mg/dL
[2024-04-09 06:48] LABS: BASOPHILS ABSOLUTE MAN 0.27 K/uL (0.00-0.20); BASOPHILS PERCENT MAN 2 % (0-1); LYMPHOCYTES ABSOLUTE MAN 2.73 K/uL (1.00-4.80); LYMPHOCYTES PERCENT MAN 20 % (24-44); MONOCYTES ABSOLUTE MAN 0.96 K/uL (0.00-0.80); MONOCYTES PERCENT MAN 7 % (0-8); SEG NEUTROPHILS ABSOLUTE MAN 9.69 K/uL (1.80-7.70); SEG NEUTROPHILS PERCENT MAN 71 % (41-71)
[2024-04-09 07:25] VITALS: BP 149/102; PULSE 87
[2024-04-09 07:28] LABS: AMPHETAMINES SCREEN, URINE NEGATIVE (CUTOFF=500); BARBITURATE SCREEN,URINE NEGATIVE (CUTOFF=200); BENZODIAZEPINES SCREEN,URINE NEGATIVE (CUTOFF=150); BUPRENORPHINE SCREEN,URINE NEGATIVE (CUTOFF=10); METHADONE SCREEN, URINE NEGATIVE (CUTOFF=200); METHAMPHETAMINES SCREEN, URINE NEGATIVE (CUTOFF=500); OXYCODONE SCREEN,URINE NEGATIVE (CUT0FF=100); PCP SCREEN,URINE NEGATIVE (CUTOFF=25); THC SCREEN,URINE 20 NG/ML NEGATIVE (CUTOFF=50)
[2024-04-09] MEDS: Ketorolac 30 MG/ML SDV IVPUSH ONE (07:44)
== END 2024-04-09 07:51 | disposition home or self-care (01) ==
LOC: MW.ED 05:27
DX: J01.00 Acute maxillary sinusitis, unspecified (principal); R79.89 Other specified abnormal findings of blood chemistry; Z91.030 Bee allergy status; Z79.2 Long term (current) use of antibiotics; R03.0 Elevated blood-pressure reading, without diagnosis of hypertension
CPT/HCPCS: 36415; 70450; 80048; 80076; 80305; 80307; 83605; 85025; 87428; 87651; 96365; 96375; 99284; J0696; J1885; J3490; J7030; 99283